=== PATIENT | female | born 1990 | race Caucasian/White ===

== ENCOUNTER 2017-11-04 11:52 | Inpatient (IN) | payer OTHER ==
[~2017-11-04] VITALS: Ht 180.3 cm; Wt 117.7 kg
[~2017-11-04 11:52] MED LIST: FIORICET 325 MG1 TA1 PO; MOTRIN 600600 MG/TAB PO; PERCOCET 325 MG1 TA2 PO; PRENATAL MVI
[2017-11-27] VITALS (65 sets, daily range): BP systolic 108–185; BP diastolic 60–98; PULSE 51–181; TEMP 97.6–98.7
[2017-11-27] MEDS ORDERED: CALCIUM CARBON650 M2 PO (10:05)
[2017-11-27 10:27] LABS: BASO % 0.4 % (0.0-2.0); EOS # 0.1 (0.0-0.7); EOS % 0.6 % (0-4.0); GRAN # 5.3 (1.4-6.5); GRAN % 67.8 % (42.2-75.2); LYMPH # 1.6 (1.2-3.4); LYMPH % 19.8 % (20.0-51.0); MEAN CELL VOLUME 85 fl (80.0-100.0); MEAN CORPUSCULAR HEMOGLOBIN 29 pg (27.0-31.0); MEAN CORPUSCULAR HGB CONC 35 g/dl (33.0-37.0); MEAN PLATELET VOLUME 11.7 fl (7.4-10.4); MONO # 0.9 (0.1-0.6); PLATELET COUNT 153 K/mm3 (130-400); RED BLOOD COUNT 4.11 M/mm3 (4.10-5.30)
[2017-11-27 10:28] LABS: HEMATOCRIT 34.8 % (37.0-47.0)
[2017-11-27 10:45] LABS: ALANINE AMINOTRANSFERASE 16 U/L (9-52); ALKALINE PHOSPHATASE 116 U/L (50-136); ANION GAP 11 mmol/L (7-16); AST,SGOT 16 U/L (15-37); BILIRUBIN,TOTAL < 0.1 mg/dL (0.0-1.0); BLOOD UREA NITROGEN 12 mg/dL (7-17); CARBON DIOXIDE 19 mmol/L (22-30); CHLORIDE 109 mmol/L (98-107); CREATININE, serum 0.64 mg/dL (0.52-1.25); GLUCOSE 77 mg/dL (74-106); POTASSIUM 4.1 mmol/L (3.4-5.0); SODIUM 139 mmol/L (137-145); TOTAL PROTEIN 6.1 gm/dL (6.4-8.2)
[2017-11-27] MEDS ORDERED: MOTRIN 800800 MG/TAB PO (23:29)
[2017-11-27] MEDS ORDERED: PERCOCET 325 MG1 TA2 PO (23:29)
[2017-11-28] VITALS (9 sets, daily range): BP systolic 120–161; BP diastolic 60–94; PULSE 72–108; TEMP 97.9–98.6
[2017-11-28 05:28] LABS: HEMATOCRIT 26.7 % (37.0-47.0); HEMOGLOBIN 9.1 g/dl (12.5-16.0)
[2017-11-29 08:26] VITALS: BP 130/80; PULSE 67; TEMP 98
== END 2017-11-29 11:55 | disposition home or self-care (01) | DRG 775 ==
LOC: OB 11-27 09:35 → LDR 11-27 09:35 → OB 11-28 01:24 → EDSTATUS 12-12 09:31 → LDRO 12-12 11:47
PROVIDERS: Obstetrics & Gynecology
PROC: 10E0XZZ Delivery of Products of Conception, External Approach (ICD-10-PCS; principal; 2017-11-27)
PROC: 0KQM0ZZ Repair Perineum Muscle, Open Approach (ICD-10-PCS; 2017-11-27)
PROC: 3E033VJ Introduction of Other Hormone into Peripheral Vein, Percutaneous Approach (ICD-10-PCS; 2017-11-27)
PROC: 10907ZC Drainage of Amniotic Fluid, Therapeutic from Products of Conception, Via Natural or Artificial Opening (ICD-10-PCS; 2017-11-27)
DX: O14.04 Mild to moderate pre-eclampsia, complicating childbirth (principal); Z3A.37 37 weeks gestation of pregnancy; Z37.0 Single live birth; O70.1 Second degree perineal laceration during delivery; O62.2 Other uterine inertia
CPT/HCPCS: J2370; J2400; J2590; J2795; J7120